=== PATIENT | male | born 1995 | race African-American/Black ===

== ENCOUNTER 2016-08-24 07:03 | Emergency (ER) | payer MEDICAID, OTHER ==
[~2016-08-24] VITALS: Ht 170.2 cm; Wt 82.0 kg
[2016-08-24 09:44] VITALS: BP 160/95
== END 2016-08-24 11:24 | disposition left against medical advice (07) ==
LOC: ER 07:04
DX: F41.9 Anxiety disorder, unspecified (principal); J45.909 Unspecified asthma, uncomplicated; F12.10 Cannabis abuse, uncomplicated
CPT/HCPCS: 99283

== ENCOUNTER 2016-10-24 13:13 | Emergency (ER) | payer OTHER ==
[~2016-10-24] VITALS: Ht 175.3 cm; Wt 80.0 kg
[2016-10-24] MEDS ORDERED: LORAZEPAM 2MG/ML CPJ IM STA (13:34)
[2016-10-24] MEDS ORDERED: OLANZAPINE 10 MG/VIAL IM STA (13:34)
[2016-10-24 14:09] LABS: BASOPHILS % 0.3 % (0.0-2.0); EOSINOPHILS % 0.4 % (0.0-5.0); HEMATOCRIT. 44.6 % (42.0-52.0); HEMOGLOBIN. 14.8 g/dL (14.0-18.0); LYMPHOCYTES % 11.3 % (20.0-50.0); MEAN CORPUSCULAR HEMOGLOBIN 28.5 pg (28.0-32.0); MONOCYTES % 10.1 % (2.0-8.0); NEUTROPHILS % 77.9 % (40.0-76.0); PLATELET 316 x1000/uL (130-400); RED BLOOD CELL COUNT 5.19 mill/uL (4.7-6.1)
[2016-10-24 14:15] LABS: CARBON DIOXIDE 20 mEq/L (21-32); CHLORIDE 102 mEq/L (98-107); ETHANOL BLOOD < 10 mg/dL
[2016-10-24 14:54] LABS: *AMPHETAMINES SCREEN URINE PRESUMTIVE POSITIVE (NEGATIVE); *BARBITURATES SCREEN URINE NEGATIVE (NEGATIVE); *BENZODIAZEPINES SCREEN URINE NEGATIVE (NEGATIVE); *COCAINE SCREEN URINE PRESUMTIVE POSITIVE (NEGATIVE); CANNABINOID URINE SCREEN NEGATIVE (NEGATIVE); METHADONE URINE SCREEN NEGATIVE (NEGATIVE); OPIATES URINE SCREEN NEGATIVE (NEGATIVE); PHENCYCLIDINE URINE SCREEN NEGATIVE (NEGATIVE)
[2016-10-24 22:49] VITALS: BP 121/77
== END 2016-10-25 00:22 | disposition home or self-care (01) ==
LOC: ER 13:37
DX: F19.10 Other psychoactive substance abuse, uncomplicated (principal); J45.909 Unspecified asthma, uncomplicated; F31.9 Bipolar disorder, unspecified; F12.10 Cannabis abuse, uncomplicated
CPT/HCPCS: 36415; 80048; 80305; 85025; 96372; 99284; G0482; J2060; J3490; Z7610

== ENCOUNTER 2016-10-25 01:11 | Emergency (ER) | payer OTHER ==
[~2016-10-25] VITALS: Ht 170.2 cm; Wt 84.0 kg
[2016-10-25 06:33] VITALS: BP 133/82
== END 2016-10-25 08:12 | disposition left against medical advice (07) ==
LOC: ER 01:11
DX: Z59.0 Homelessness (principal); J45.909 Unspecified asthma, uncomplicated; F41.9 Anxiety disorder, unspecified; F20.9 Schizophrenia, unspecified; F17.200 Nicotine dependence, unspecified, uncomplicated
CPT/HCPCS: 99283

== ENCOUNTER 2017-01-16 03:10 | Emergency (ER) | payer OTHER ==
[~2017-01-16] VITALS: Ht 175.3 cm; Wt 91.0 kg
[2017-01-16] MEDS ORDERED: IPRATROPIUM BROMIDE (0.02%) 0.5MG/2.5ML NEB HHN STA (06:36)
[2017-01-16] MEDS ORDERED: ALBUTEROL (0.083%) 2.5MG/3ML NEB HHN STA (06:36)
[2017-01-16] MEDS ORDERED: METHYLPREDNISOLONE SOD SUCC 125 MG/2 ML VIAL IV STA (06:36)
[2017-01-16 08:00] VITALS: BP 143/75
[2017-01-16] MEDS ORDERED: IPRATROPIUM/ALBUTEROL 0.5-3(2.5)MG/3ML NEB ONE (08:01)
== END 2017-01-16 08:28 | disposition home or self-care (01) ==
LOC: ER 03:10
DX: J45.901 Unspecified asthma with (acute) exacerbation (principal); F17.200 Nicotine dependence, unspecified, uncomplicated
CPT/HCPCS: 94640; 99283; J7611; J7620

== ENCOUNTER 2017-02-01 17:34 | Emergency (ER) | payer OTHER ==
[~2017-02-01] VITALS: Ht 172.7 cm; Wt 85.0 kg
[2017-02-01] MEDS ORDERED: IPRATROPIUM/ALBUTEROL 0.5-3(2.5)MG/3ML NEB HHN ONE (19:00)
[2017-02-01 20:46] LABS: BASOPHILS % 0.6 % (0.0-2.0); EOSINOPHILS % 3.2 % (0.0-5.0); HEMATOCRIT. 45.2 % (42.0-52.0); HEMOGLOBIN. 15.2 g/dL (14.0-18.0); LYMPHOCYTES % 42.1 % (20.0-50.0); MEAN CORPUSCULAR HEMOGLOBIN 29.3 pg (28.0-32.0); MEAN CORPUSCULAR VOLUME 87.1 fL (80.0-94.0); MEAN PLATELET VOLUME 6.6 fl (7.4-10.4); MONOCYTES % 7.2 % (2.0-8.0); NEUTROPHILS % 46.9 % (40.0-76.0); PLATELET 298 x1000/uL (130-400); RED BLOOD CELL COUNT 5.19 mill/uL (4.7-6.1); RED CELL DISTRIBUTION WIDTH 13.8 % (11.6-14.6)
[2017-02-01 20:52] LABS: CHLORIDE 105 mEq/L (98-107)
[2017-02-01 21:03] LABS: CARBON DIOXIDE 29 mEq/L (21-32)
[2017-02-01 21:28] LABS: CLARITY URINE TURBID (CLEAR); COLOR URINE YELLOW (YELLOW); GLUCOSE URINE NEGATIVE (NEGATIVE); KETONES URINE NEGATIVE (NEGATIVE); LEUKOCYTE ESTERASE URINE NEGATIVE (NEGATIVE); NITRITE URINE NEGATIVE (NEGATIVE); OCCULT BLOOD URINE NEGATIVE (NEGATIVE); PROTEIN URINE NEGATIVE (NEGATIVE); SPECIFIC GRAVITY URINE 1.027 (1.005-1.030)
[2017-02-01 21:40] LABS: *AMPHETAMINES SCREEN URINE PRESUMTIVE POSITIVE (NEGATIVE); *BARBITURATES SCREEN URINE NEGATIVE (NEGATIVE); *BENZODIAZEPINES SCREEN URINE NEGATIVE (NEGATIVE); *COCAINE SCREEN URINE NEGATIVE (NEGATIVE); CANNABINOID URINE SCREEN NEGATIVE (NEGATIVE); METHADONE URINE SCREEN NEGATIVE (NEGATIVE); OPIATES URINE SCREEN NEGATIVE (NEGATIVE); PHENCYCLIDINE URINE SCREEN NEGATIVE (NEGATIVE)
[2017-02-01 21:41] VITALS: BP 121/74
== END 2017-02-01 21:42 | disposition home or self-care (01) ==
LOC: ER 17:46
DX: F41.9 Anxiety disorder, unspecified (principal); J45.909 Unspecified asthma, uncomplicated
CPT/HCPCS: 36415; 71010; 80053; 80305; 81001; 85025; 93005; 94640; 99285; J7620

== ENCOUNTER 2017-02-01 22:51 | Emergency (ER) | payer OTHER ==
[~2017-02-01] VITALS: Ht 170.2 cm; Wt 91.0 kg
[2017-02-01 22:53] VITALS: BP 170/100
== END 2017-02-01 23:55 | disposition home or self-care (01) ==
LOC: ER 22:51
DX: Z76.0 Encounter for issue of repeat prescription (principal); T43.621A Poisoning by amphetamines, accidental (unintentional), initial encounter; J45.909 Unspecified asthma, uncomplicated; R56.9 Unspecified convulsions
CPT/HCPCS: 99283

== ENCOUNTER 2017-02-02 01:16 | Emergency (ER) | payer OTHER ==
[~2017-02-02] VITALS: Ht 170.2 cm; Wt 91.0 kg
[2017-02-02 08:09] VITALS: BP 151/109
[2017-02-02] MEDS ORDERED: LEVETIRACETAM 1,000 MG in SODIUM CHLORIDE 0.9% 100 ML IV SCH (09:00)
[2017-02-02] MEDS ORDERED: LEVETIRACETAM 1000MG PREMIX 100 ML IV SCH (09:12)
== END 2017-02-02 10:20 | disposition home or self-care (01) ==
LOC: ER 01:24
DX: G40.909 Epilepsy, unspecified, not intractable, without status epilepticus (principal); J45.909 Unspecified asthma, uncomplicated; F17.210 Nicotine dependence, cigarettes, uncomplicated; Z91.14 Patient's other noncompliance with medication regimen
CPT/HCPCS: 93005; 96365; 99284; J1953; Z7610

== ENCOUNTER 2017-05-06 08:58 | Emergency (ER) | payer OTHER ==
[~2017-05-06] VITALS: Ht 175.3 cm; Wt 80.0 kg
[2017-05-06] MEDS ORDERED: ALBUTEROL (0.083%) 2.5MG/3ML NEB HHN STA (09:12)
[2017-05-06] MEDS ORDERED: PREDNISONE 20MG TABLET PO STA (09:12)
[2017-05-06] MEDS ORDERED: IPRATROPIUM BROMIDE (0.02%) 0.5MG/2.5ML NEB HHN STA (09:12)
[2017-05-06 11:31] VITALS: BP 158/79
== END 2017-05-06 11:40 | disposition home or self-care (01) ==
LOC: ER 09:20
DX: J45.901 Unspecified asthma with (acute) exacerbation (principal); F17.200 Nicotine dependence, unspecified, uncomplicated; F15.10 Other stimulant abuse, uncomplicated
CPT/HCPCS: 94640; 99283; J7512; J7611; Z7610

== ENCOUNTER 2017-05-06 14:12 | Emergency (ER) | payer OTHER ==
[~2017-05-06] VITALS: Ht 170.2 cm; Wt 73.0 kg
[2017-05-06 14:35] VITALS: BP 115/90
== END 2017-05-06 20:35 | disposition left against medical advice (07) ==
LOC: ER 15:25
DX: R06.02 Shortness of breath (principal); Z53.21 Procedure and treatment not carried out due to patient leaving prior to being seen by health care provider

== ENCOUNTER 2017-05-20 01:34 | Emergency (ER) | payer OTHER ==
[~2017-05-20] VITALS: Ht 170.2 cm; Wt 81.0 kg
[2017-05-20 07:13] LABS: CLARITY URINE CLEAR (CLEAR); COLOR URINE YELLOW (YELLOW); KETONES URINE TRACE (NEGATIVE); LEUKOCYTE ESTERASE URINE NEGATIVE (NEGATIVE); NITRITE URINE NEGATIVE (NEGATIVE); OCCULT BLOOD URINE NEGATIVE (NEGATIVE); PH URINE 5.5 (4.5-8.0); PROTEIN URINE NEGATIVE (NEGATIVE); SPECIFIC GRAVITY URINE 1.023 (1.005-1.030); UROBILINOGEN URINE 0.2 E.U./dL (0.2-1.0)
[2017-05-20 07:20] LABS: BASOPHILS % 0.8 % (0.0-2.0); EOSINOPHILS % 4.3 % (0.0-5.0); HEMATOCRIT. 40.6 % (42.0-52.0); HEMOGLOBIN. 13.3 g/dL (14.0-18.0); LYMPHOCYTES % 46.7 % (20.0-50.0); MEAN CORPUSCULAR HEMOGLOBIN 28.9 pg (28.0-32.0); MEAN PLATELET VOLUME 6.6 fl (7.4-10.4); NEUTROPHILS % 37.2 % (40.0-76.0); PLATELET 319 x1000/uL (130-400); RED BLOOD CELL COUNT 4.61 mill/uL (4.7-6.1); RED CELL DISTRIBUTION WIDTH 13.9 % (11.6-14.6)
[2017-05-20 07:30] LABS: CHLORIDE 109 mEq/L (98-107); ETHANOL BLOOD < 10 mg/dL
[2017-05-20 07:46] LABS: *BARBITURATES SCREEN URINE NEGATIVE (NEGATIVE); *COCAINE SCREEN URINE NEGATIVE (NEGATIVE); CANNABINOID URINE SCREEN NEGATIVE (NEGATIVE); METHADONE URINE SCREEN NEGATIVE (NEGATIVE); OPIATES URINE SCREEN NEGATIVE (NEGATIVE)
[2017-05-20 07:50] LABS: *AMPHETAMINES SCREEN URINE PRESUMTIVE POSITIVE (NEGATIVE); *BENZODIAZEPINES SCREEN URINE NEGATIVE (NEGATIVE); PHENCYCLIDINE URINE SCREEN PRESUMTIVE POSITIVE (NEGATIVE)
[2017-05-20 13:32] VITALS: BP 118/72
== END 2017-05-20 13:54 | disposition home or self-care (01) ==
LOC: ER 01:34
DX: F31.9 Bipolar disorder, unspecified (principal); F20.9 Schizophrenia, unspecified; F15.10 Other stimulant abuse, uncomplicated; J45.909 Unspecified asthma, uncomplicated; F17.200 Nicotine dependence, unspecified, uncomplicated
CPT/HCPCS: 36415; 80053; 80305; 80307; 80329; 81003; 85025; 93005; 99285; G0482; Z7610

== ENCOUNTER 2017-06-05 02:04 | Emergency (ER) | payer OTHER ==
[~2017-06-05] VITALS: Ht 175.3 cm; Wt 86.0 kg
[2017-06-05 02:45] LABS: BASOPHILS % 0.8 % (0.0-2.0); EOSINOPHILS % 4.4 % (0.0-5.0); HEMATOCRIT. 43.4 % (42.0-52.0); HEMOGLOBIN. 14.5 g/dL (14.0-18.0); LYMPHOCYTES % 50.6 % (20.0-50.0); MEAN CORPUSCULAR HEMOGLOBIN 29.1 pg (28.0-32.0); MEAN CORPUSCULAR VOLUME 87.1 fL (80.0-94.0); MEAN PLATELET VOLUME 6.6 fl (7.4-10.4); MONOCYTES % 8.8 % (2.0-8.0); NEUTROPHILS % 35.4 % (40.0-76.0); PLATELET 326 x1000/uL (130-400); RED BLOOD CELL COUNT 4.98 mill/uL (4.7-6.1); RED CELL DISTRIBUTION WIDTH 13.8 % (11.6-14.6)
[2017-06-05 02:52] LABS: CHLORIDE 108 mEq/L (98-107)
[2017-06-05 02:57] LABS: ETHANOL BLOOD 219 mg/dL
[2017-06-05 05:01] LABS: *AMPHETAMINES SCREEN URINE NEGATIVE (NEGATIVE); *BARBITURATES SCREEN URINE NEGATIVE (NEGATIVE); *BENZODIAZEPINES SCREEN URINE NEGATIVE (NEGATIVE); *COCAINE SCREEN URINE PRESUMTIVE POSITIVE (NEGATIVE); CANNABINOID URINE SCREEN NEGATIVE (NEGATIVE); METHADONE URINE SCREEN NEGATIVE (NEGATIVE); OPIATES URINE SCREEN NEGATIVE (NEGATIVE); PHENCYCLIDINE URINE SCREEN NEGATIVE (NEGATIVE)
[2017-06-05 08:26] VITALS: BP 128/72
== END 2017-06-05 08:30 | disposition home or self-care (01) ==
LOC: ER 02:04
DX: J45.901 Unspecified asthma with (acute) exacerbation (principal); F31.9 Bipolar disorder, unspecified; F20.9 Schizophrenia, unspecified; F15.10 Other stimulant abuse, uncomplicated
CPT/HCPCS: 36415; 80048; 80305; 80307; 80329; 85025; 99284; G0482; Z7610

== ENCOUNTER 2017-06-09 01:06 | Emergency (ER) | payer OTHER ==
[~2017-06-09] VITALS: Ht 170.2 cm; Wt 87.0 kg
[2017-06-09 07:02] LABS: CLARITY URINE CLEAR (CLEAR); COLOR URINE YELLOW (YELLOW); KETONES URINE NEGATIVE (NEGATIVE); LEUKOCYTE ESTERASE URINE NEGATIVE (NEGATIVE); NITRITE URINE NEGATIVE (NEGATIVE); OCCULT BLOOD URINE NEGATIVE (NEGATIVE); PH URINE 5.5 (4.5-8.0); PROTEIN URINE NEGATIVE (NEGATIVE); SPECIFIC GRAVITY URINE 1.024 (1.005-1.030); UROBILINOGEN URINE 0.2 E.U./dL (0.2-1.0)
[2017-06-09 07:04] LABS: EOSINOPHILS % 4.1 % (0.0-5.0); HEMATOCRIT. 41.8 % (42.0-52.0); HEMOGLOBIN. 13.9 g/dL (14.0-18.0); LYMPHOCYTES % 41.1 % (20.0-50.0); MEAN CORPUSCULAR VOLUME 87.1 fL (80.0-94.0); MEAN PLATELET VOLUME 6.7 fl (7.4-10.4); MONOCYTES % 9.6 % (2.0-8.0); NEUTROPHILS % 44.2 % (40.0-76.0); PLATELET 299 x1000/uL (130-400); RED BLOOD CELL COUNT 4.81 mill/uL (4.7-6.1); RED CELL DISTRIBUTION WIDTH 13.6 % (11.6-14.6)
[2017-06-09 07:14] LABS: CHLORIDE 104 mEq/L (98-107)
[2017-06-09 07:18] LABS: ETHANOL BLOOD < 10 mg/dL
[2017-06-09 07:35] LABS: *AMPHETAMINES SCREEN URINE NEGATIVE (NEGATIVE); *BARBITURATES SCREEN URINE NEGATIVE (NEGATIVE); *BENZODIAZEPINES SCREEN URINE NEGATIVE (NEGATIVE); *COCAINE SCREEN URINE NEGATIVE (NEGATIVE); CANNABINOID URINE SCREEN NEGATIVE (NEGATIVE); METHADONE URINE SCREEN NEGATIVE (NEGATIVE); OPIATES URINE SCREEN NEGATIVE (NEGATIVE); PHENCYCLIDINE URINE SCREEN NEGATIVE (NEGATIVE)
[2017-06-09 09:25] VITALS: BP 131/76
== END 2017-06-09 10:11 | disposition home or self-care (01) ==
LOC: ER 01:06
DX: Z76.0 Encounter for issue of repeat prescription (principal); R44.0 Auditory hallucinations; F31.9 Bipolar disorder, unspecified; F17.210 Nicotine dependence, cigarettes, uncomplicated; R03.0 Elevated blood-pressure reading, without diagnosis of hypertension
CPT/HCPCS: 36415; 80053; 80305; 80307; 80329; 81003; 85025; 99284; G0482

== ENCOUNTER 2017-06-11 02:10 | Emergency (ER) | payer OTHER ==
[~2017-06-11] VITALS: Ht 182.9 cm; Wt 86.0 kg
[2017-06-11] MEDS ORDERED: OLANZAPINE 5MG TABLET ODT PO ONE (07:15)
[2017-06-11] MEDS ORDERED: ALBUTEROL (0.083%) 2.5MG/3ML NEB HHN STA (07:15)
[2017-06-11 08:15] VITALS: BP 134/75
== END 2017-06-11 09:01 | disposition home or self-care (01) ==
LOC: ER 02:20
DX: F20.9 Schizophrenia, unspecified (principal); J45.901 Unspecified asthma with (acute) exacerbation; J20.9 Acute bronchitis, unspecified; F31.9 Bipolar disorder, unspecified; F17.200 Nicotine dependence, unspecified, uncomplicated; Z91.19 Patient's noncompliance with other medical treatment and regimen
CPT/HCPCS: 71045; 94640; 99283; J7030; J7611; Z7610

== ENCOUNTER 2017-07-17 23:28 | Emergency (ER) | payer OTHER ==
[~2017-07-17] VITALS: Ht 170.2 cm; Wt 91.0 kg
[2017-07-17 23:35] VITALS: BP 113/75
== END 2017-07-18 | disposition left against medical advice (07) ==
LOC: ER 23:28
DX: F41.0 Panic disorder [episodic paroxysmal anxiety] (principal); Z53.21 Procedure and treatment not carried out due to patient leaving prior to being seen by health care provider

== ENCOUNTER 2019-05-18 15:09 | Emergency (ER) | payer MEDICAID, OTHER ==
[~2019-05-18] VITALS: Ht 172.7 cm; Wt 91.0 kg
[2019-05-18] MEDS ORDERED: PREDNISONE 20MG TABLET PO STA (17:40)
[2019-05-18] MEDS ORDERED: IPRATROPIUM/ALBUTEROL 0.5-3(2.5)MG/3ML NEB HHN ONE (17:45)
[2019-05-18 19:34] VITALS: BP 124/74
== END 2019-05-18 19:35 | disposition home or self-care (01) ==
LOC: ER 15:09
DX: J45.901 Unspecified asthma with (acute) exacerbation (principal); F15.10 Other stimulant abuse, uncomplicated; Z86.59 Personal history of other mental and behavioral disorders
CPT/HCPCS: 94640; 99283; J7512; J7610; Z7610

== ENCOUNTER 2021-03-03 05:13 | Inpatient (IN) | payer MEDICAID, OTHER ==
[~2021-03-03] VITALS: Ht 170.2 cm; Wt 108.4 kg
[2021-03-03] MEDS ORDERED: METHYLPREDNISOLONE SOD SUCC 125 MG/2 ML VIAL IV STA (05:32)
[2021-03-03] MEDS ORDERED: IPRATROPIUM BROMIDE (0.02%) 0.5MG/2.5ML NEB HHN STA (05:32)
[2021-03-03] MEDS: ALBUTEROL (0.083%) 2.5MG/3ML NEB HHN SCH ×3 (05:47→06:52)
[2021-03-03] MEDS ORDERED: ALBUTEROL (0.083%) 2.5MG/3ML NEB HHN STA (07:50)
[2021-03-03 08:30] LABS: BASOPHILS % 0.7 % (0.0-2.0); EOSINOPHILS % 1.2 % (0.0-5.0); HEMATOCRIT. 41.4 % (42.0-52.0); HEMOGLOBIN. 14.1 g/dL (14.0-18.0); LYMPHOCYTES % 13.3 % (20.0-50.0); MEAN CORPUSCULAR HEMOGLOBIN 29.3 pg (28.0-32.0); MEAN CORPUSCULAR VOLUME 86.4 fL (80.0-94.0); MEAN PLATELET VOLUME 6.5 fl (7.4-10.4); MONOCYTES % 2.9 % (2.0-8.0); NEUTROPHILS % 81.9 % (40.0-76.0); PLATELET 262 x1000/uL (130-400); RED BLOOD CELL COUNT 4.79 mill/uL (4.7-6.1); RED CELL DISTRIBUTION WIDTH 15.3 % (11.6-14.6)
[2021-03-03 08:37] LABS: CHLORIDE 105 mEq/L (98-107)
[2021-03-03] MEDS ORDERED: ACETAMINOPHEN 325MG TABLET PO PRN (14:15)
[2021-03-03] MEDS ORDERED: ONDANSETRON HCL 4MG/2ML INJ IV PRN (14:15)
[2021-03-03] MEDS: IPRATROPIUM/ALBUTEROL 0.5-3(2.5)MG/3ML NEB HHN SCH (17:00)
[2021-03-03] MEDS: METHYLPREDNISOLONE SOD SUCC 40 MG/ML VIAL IV SCH (18:01)
[2021-03-03] MEDS ORDERED: FAMOTIDINE 20MG TABLET PO SCH (21:00)
[2021-03-03 22:30] VITALS: BP 172/60
[2021-03-03 22:33] VITALS: BP 172/60
[2021-03-04] MEDS ORDERED: ZOLPIDEM TARTRATE 5MG TABLET PO NR
[2021-03-04] MEDS: METHYLPREDNISOLONE SOD SUCC 40 MG/ML VIAL IV SCH ×3 (00:24→09:08)
[2021-03-04] MEDS: IPRATROPIUM/ALBUTEROL 0.5-3(2.5)MG/3ML NEB HHN SCH ×4 (00:51→13:07)
[2021-03-04] MEDS ORDERED: METF-873 MT (02:22)
[2021-03-04] MEDS ORDERED: FLUT1BLS8 IH (02:22)
[2021-03-04] MEDS ORDERED: OLAN2.5T29 MT (02:22)
[2021-03-04] MEDS ORDERED: ALBU6.7H9 INH ×2 (02:22→12:21)
[2021-03-04] MEDS ORDERED: ZOLPIDEM TARTRATE 5MG TABLET PO PRN (02:30)
[2021-03-04] MEDS ORDERED: ACETAMINOPHEN 325MG TABLET PO PRN (02:30)
[2021-03-04] MEDS ORDERED: ONDANSETRON HCL 4MG/2ML INJ IV PRN (02:30)
[2021-03-04 04:00] VITALS: BP 139/83
[2021-03-04 08:00] VITALS: BP 144/89
[2021-03-04] MEDS ORDERED: FAMOTIDINE 20MG TABLET PO SCH (09:00)
[2021-03-04 12:00] VITALS: BP 155/86
[2021-03-04] MEDS ORDERED: FLUT1DIS3 INH (12:21)
[2021-03-04] MEDS ORDERED: P20 MT (12:21)
[2021-03-04] MEDS ORDERED: AMLO10TA80 MT (12:54)
[2021-03-04 13:14] VITALS: BP 155/86
[2021-03-04 15:05] LABS: *AMPHETAMINES SCREEN URINE NEGATIVE (NEGATIVE); *BARBITURATES SCREEN URINE NEGATIVE (NEGATIVE); *BENZODIAZEPINES SCREEN URINE NEGATIVE (NEGATIVE); *COCAINE SCREEN URINE NEGATIVE (NEGATIVE); METHADONE URINE SCREEN NEGATIVE (NEGATIVE); OPIATES URINE SCREEN NEGATIVE (NEGATIVE); PHENCYCLIDINE URINE SCREEN NEGATIVE (NEGATIVE)
[2021-03-04 15:06] LABS: CANNABINOID URINE SCREEN NEGATIVE (NEGATIVE)
== END 2021-03-04 15:35 | disposition home or self-care (01) | DRG 133 ==
LOC: ER 05:52 → MICUSO 12:34 → 8WST 15:26 → MICUSO 15:39 → 7EST 21:46
PROVIDERS: ADMIT Internal Medicine; ATTEND Internal Medicine
DX: J96.01 Acute respiratory failure with hypoxia (principal); J45.901 Unspecified asthma with (acute) exacerbation; E66.9 Obesity, unspecified; R74.01 Elevation of levels of liver transaminase levels; F17.210 Nicotine dependence, cigarettes, uncomplicated; Z20.822 Contact with and (suspected) exposure to COVID-19; F20.9 Schizophrenia, unspecified; Z71.6 Tobacco abuse counseling; F31.9 Bipolar disorder, unspecified; Z71.3 Dietary counseling and surveillance; Z68.37 Body mass index [BMI] 37.0-37.9, adult
CPT/HCPCS: 36415; 71045; 80053; 80305; 85025; 87426; 94640; 99285; J2920; J2930

== ENCOUNTER 2021-04-18 10:40 | Emergency (ER) | payer MEDICAID ==
[~2021-04-18] VITALS: Ht 172.7 cm; Wt 73.0 kg
[~2021-04-18 10:40] MED LIST: ALBU6.7H9 INH; AMLO10TA80 MT; FLUT1BLS8 IH; FLUT1DIS3 INH; METF-873 MT; OLAN2.5T29 MT; P20 MT
[2021-04-18] MEDS ORDERED: IPRATROPIUM/ALBUTEROL 0.5-3(2.5)MG/3ML NEB HHN ONE (11:00)
[2021-04-18] MEDS ORDERED: PREDNISONE 20MG TABLET PO ONE (11:00)
[2021-04-18] MEDS ORDERED: ALBU6.7H9 INH (13:46)
[2021-04-18] MEDS ORDERED: P20 MT (13:46)
[2021-04-18 14:00] VITALS: BP 134/87
== END 2021-04-18 14:06 | disposition home or self-care (01) ==
LOC: ER 10:40
DX: J45.901 Unspecified asthma with (acute) exacerbation (principal); F12.10 Cannabis abuse, uncomplicated; F17.210 Nicotine dependence, cigarettes, uncomplicated; Z71.6 Tobacco abuse counseling
CPT/HCPCS: 71045; 94640; 99283; 99406; J7512; Z7610

== ENCOUNTER 2021-05-09 22:07 | Emergency (ER) | payer MEDICAID ==
[~2021-05-09] VITALS: Ht 170.2 cm; Wt 79.0 kg
[2021-05-09 23:14] LABS: HEMATOCRIT. 43.2 % (42.0-52.0); HEMOGLOBIN. 14.7 g/dL (14.0-18.0); MEAN CORPUSCULAR HEMOGLOBIN 28.6 pg (28.0-32.0); MEAN CORPUSCULAR VOLUME 84.3 fL (80.0-94.0); RED BLOOD CELL COUNT 5.13 mill/uL (4.7-6.1); RED CELL DISTRIBUTION WIDTH 14.6 % (11.6-14.6)
[2021-05-09 23:28] LABS: CHLORIDE 103 mEq/L (98-107); MEAN PLATELET VOLUME 7.1 fl (7.4-10.4); PLATELET 324 x1000/uL (130-400)
[2021-05-09 23:30] LABS: PLATELET ESTIMATE NORMAL
[2021-05-09] MEDS ORDERED: POTASSIUM CHLORIDE 20MEQ TABLET SR PO ONE (23:45)
[2021-05-10 03:16] VITALS: BP 135/90
== END 2021-05-10 03:17 | disposition home or self-care (01) ==
LOC: ER 22:07
DX: R42 Dizziness and giddiness (principal); E87.6 Hypokalemia; F17.200 Nicotine dependence, unspecified, uncomplicated; F14.10 Cocaine abuse, uncomplicated; F12.10 Cannabis abuse, uncomplicated; F15.10 Other stimulant abuse, uncomplicated; E11.9 Type 2 diabetes mellitus without complications; J45.909 Unspecified asthma, uncomplicated; Z79.899 Other long term (current) drug therapy; Z98.890 Other specified postprocedural states; Z86.59 Personal history of other mental and behavioral disorders
CPT/HCPCS: 36415; 80053; 85025; 93005; 99284

== ENCOUNTER 2021-05-24 21:11 | Emergency (ER) | payer MEDICAID ==
[~2021-05-24] VITALS: Ht 162.6 cm; Wt 78.0 kg
[2021-05-24 23:18] LABS: BASOPHILS % 0.7 % (0.0-2.0); EOSINOPHILS % 4.5 % (0.0-5.0); HEMOGLOBIN. 14.4 g/dL (14.0-18.0); LYMPHOCYTES % 32.9 % (20.0-50.0); MEAN CORPUSCULAR HEMOGLOBIN 28.2 pg (28.0-32.0); MEAN CORPUSCULAR VOLUME 84.1 fL (80.0-94.0); MEAN PLATELET VOLUME 6.7 fl (7.4-10.4); MONOCYTES % 11.8 % (2.0-8.0); NEUTROPHILS % 50.1 % (40.0-76.0); PLATELET 377 x1000/uL (130-400); RED BLOOD CELL COUNT 5.11 mill/uL (4.7-6.1); RED CELL DISTRIBUTION WIDTH 14.3 % (11.6-14.6)
[2021-05-24 23:22] LABS: CHLORIDE 102 mEq/L (98-107)
[2021-05-24 23:27] LABS: ETHANOL BLOOD < 10 mg/dL
[2021-05-25 00:48] LABS: *AMPHETAMINES SCREEN URINE PRESUMTIVE POSITIVE (NEGATIVE); *BARBITURATES SCREEN URINE NEGATIVE (NEGATIVE); *BENZODIAZEPINES SCREEN URINE NEGATIVE (NEGATIVE); *COCAINE SCREEN URINE NEGATIVE (NEGATIVE); CANNABINOID URINE SCREEN PRESUMTIVE POSITIVE (NEGATIVE); METHADONE URINE SCREEN NEGATIVE (NEGATIVE); OPIATES URINE SCREEN NEGATIVE (NEGATIVE); PHENCYCLIDINE URINE SCREEN NEGATIVE (NEGATIVE)
[2021-05-25 00:59] LABS: CLARITY URINE CLOUDY (CLEAR); COLOR URINE DARK YELLOW (YELLOW); KETONES URINE TRACE (NEGATIVE); LEUKOCYTE ESTERASE URINE 1+ (NEGATIVE); NITRITE URINE NEGATIVE (NEGATIVE); OCCULT BLOOD URINE NEGATIVE (NEGATIVE); PH URINE 5.5 (4.5-8.0); PROTEIN URINE 1+ (NEGATIVE); SPECIFIC GRAVITY URINE 1.031 (1.005-1.030)
[2021-05-25 02:30] VITALS: BP 159/85
== END 2021-05-25 02:30 | disposition home or self-care (01) ==
LOC: ER 21:11
DX: F15.988 Other stimulant use, unspecified with other stimulant-induced disorder (principal); R55 Syncope and collapse; I10 Essential (primary) hypertension; R00.0 Tachycardia, unspecified; E87.6 Hypokalemia; M25.551 Pain in right hip; F14.90 Cocaine use, unspecified, uncomplicated; F16.90 Hallucinogen use, unspecified, uncomplicated; F12.90 Cannabis use, unspecified, uncomplicated; Z71.51 Drug abuse counseling and surveillance of drug abuser; Z71.89 Other specified counseling
CPT/HCPCS: 36415; 80053; 80305; 80320; 81003; 85025; 93005; 99284; G0480

== ENCOUNTER 2022-10-02 10:28 | Emergency (ER) | payer MEDICAID ==
[~2022-10-02] VITALS: Ht 170.2 cm; Wt 83.0 kg
[~2022-10-02 10:28] MED LIST changes: +ALBU6.7H3 INH; -ALBU6.7H9 INH
[2022-10-02 10:51] VITALS: BP 133/76; TEMP 97.8
[2022-10-02] MEDS ORDERED: PREDNISONE 20MG TABLET PO STA (11:03)
[2022-10-02] MEDS ORDERED: ALBUTEROL (0.083%) 2.5MG/3ML NEB HHN STA (11:03)
[2022-10-02 14:15] VITALS: PULSE 84; RESP 24; O2SAT 96
[2022-10-02] MEDS: PREDNISONE 20MG TABLET PO NR (14:15)
[2022-10-02] MEDS ORDERED: ALBU6.7H3 INH (14:27)
[2022-10-02] MEDS ORDERED: P50 MT (14:27)
[2022-10-02] MEDS ORDERED: ALBUTEROL (0.083%) 2.5MG/3ML NEB HHN NR (14:30)
== END 2022-10-02 15:35 | disposition home or self-care (01) ==
LOC: ER 10:28
DX: J45.901 Unspecified asthma with (acute) exacerbation (principal); F14.10 Cocaine abuse, uncomplicated; F12.10 Cannabis abuse, uncomplicated; F15.10 Other stimulant abuse, uncomplicated; Z79.899 Other long term (current) drug therapy
CPT/HCPCS: 71045; 94640; 93005; 99283; J7512; Z7610 ×3; 94664

== ENCOUNTER 2023-03-12 00:19 | Emergency (ER) | payer MEDICAID ==
[~2023-03-12] VITALS: Ht 177.8 cm; Wt 95.0 kg
[~2023-03-12 00:19] MED LIST changes: +P50 MT
[2023-03-12] MEDS ORDERED: IPRATROPIUM BROMIDE (0.02%) 0.5MG/2.5ML NEB HHN STA (00:40)
[2023-03-12] MEDS ORDERED: PREDNISONE 20MG TABLET PO STA (00:40)
[2023-03-12] MEDS ORDERED: ALBUTEROL (0.083%) 2.5MG/3ML NEB HHN STA (00:40)
[2023-03-12 01:28] VITALS: PULSE 117; RESP 20; O2SAT 98
[2023-03-12] MEDS ORDERED: P20 MT ×3 (02:27→11:34)
[2023-03-12] MEDS ORDERED: ALBU6.7H15 INH ×4 (02:27→14:08)
[2023-03-12] MEDS ORDERED: ALBUTEROL (0.5%) 2.5MG/0.5ML NEB HHN ONE (03:00)
[2023-03-12] MEDS ORDERED: SODIUM CHLORIDE 0.9% 1,000 ML IV ONE (03:00)
[2023-03-12] MEDS ORDERED: ACETAMINOPHEN 325MG TABLET PO ONE (03:00)
[2023-03-12 03:17] VITALS: PULSE 115; RESP 20
[2023-03-12 04:47] LABS: BASOPHILS % 0.5 % (0.0-2.0); EOSINOPHILS % 3.2 % (0.0-5.0); HEMATOCRIT. 39.7 % (42.0-52.0); HEMOGLOBIN. 12.7 g/dL (14.0-18.0); LYMPHOCYTES % 22.4 % (20.0-50.0); MEAN CORPUSCULAR HEMOGLOBIN 27.5 pg (28.0-32.0); MEAN CORPUSCULAR VOLUME 85.9 fL (80.0-94.0); MEAN PLATELET VOLUME 6.4 fl (7.4-10.4); MONOCYTES % 4.3 % (2.0-8.0); NEUTROPHILS % 69.6 % (40.0-76.0); PLATELET 276 x1000/uL (130-400); RED BLOOD CELL COUNT 4.62 mill/uL (4.7-6.1); RED CELL DISTRIBUTION WIDTH 14.1 % (11.6-14.6); WHITE BLOOD COUNT 6.3 x1000/uL (4.5-11.0)
[2023-03-12 04:58] LABS: CALCIUM 8.1 mg/dL (8.7-10.4); CARBON DIOXIDE 30 mEq/L (21-32); CHLORIDE 107 mEq/L (98-107); CREATININE 0.7 mg/dL (0.6-1.3); GLUCOSE 145 mg/dL (70-105); POTASSIUM 3.7 mEq/L (3.5-5.1); SODIUM 142 mEq/L (136-145); UREA NITROGEN BLOOD 10 mg/dL (9-23)
[2023-03-12] MEDS ORDERED: BUDESONIDE 0.5MG/2ML NEB HHN SCH (06:45)
[2023-03-12] MEDS ORDERED: IPRATROPIUM/ALBUTEROL 0.5-3(2.5)MG/3ML NEB HHN PRN (06:45)
[2023-03-12 07:13] LABS: T4 FREE 0.86 ng/dL (0.89-1.76); THYROID STIMULATING HORMONE 3.14 uIU/mL (0.55-4.78)
[2023-03-12] MEDS: IPRATROPIUM/ALBUTEROL 0.5-3(2.5)MG/3ML NEB HHN SCH ×2 (08:20→11:30)
[2023-03-12 08:21] VITALS: PULSE 98; RESP 18
[2023-03-12 08:23] LABS: CLARITY URINE CLOUDY (CLEAR); COLOR URINE YELLOW (YELLOW); GLUCOSE URINE NEGATIVE (NEGATIVE); KETONES URINE NEGATIVE (NEGATIVE); LEUKOCYTE ESTERASE URINE NEGATIVE (NEGATIVE); NITRITE URINE NEGATIVE (NEGATIVE); OCCULT BLOOD URINE NEGATIVE (NEGATIVE); PH URINE 7.5 (4.5-8.0); PROTEIN URINE NEGATIVE (NEGATIVE)
[2023-03-12 09:03] LABS: RBC URINE NONE SEEN /hpf (0-2)
[2023-03-12 09:04] LABS: BACTERIA URINE FEW; SQUAMOUS EPITHELIAL CELL URINE FEW /lpf (RARE/1+); YEAST URINE NONE SEEN
[2023-03-12 11:30] VITALS: PULSE 106; RESP 16; O2SAT 96
[2023-03-12] MEDS ORDERED: ATROV INH ×3 (11:34→14:08)
[2023-03-12 13:51] LABS: *AMPHETAMINES SCREEN URINE PRESUMPTIVE POSITIVE (NEGATIVE); *BARBITURATES SCREEN URINE NEGATIVE (NEGATIVE); *BENZODIAZEPINES SCREEN URINE NEGATIVE (NEGATIVE); *COCAINE SCREEN URINE NEGATIVE (NEGATIVE); ECSTASY MDMA SCREEN URINE NEGATIVE (NEGATIVE); OPIATES URINE SCREEN NEGATIVE (NEGATIVE)
[2023-03-12 13:52] LABS: PHENCYCLIDINE URINE SCREEN NEGATIVE (NEGATIVE)
[2023-03-12] MEDS ORDERED: PRED10TA23 MT (14:00)
[2023-03-12] MEDS ORDERED: PRED10TA PO (14:08)
[2023-03-12 15:28] VITALS: BP 116/72; PULSE 98; RESP 17; TEMP 98.7
== END 2023-03-12 15:30 | disposition home or self-care (01) ==
LOC: ER 00:19 → EDBEDREQTM 04:55 → EDBEDREQ 04:55 → ER 15:30
DX: J45.901 Unspecified asthma with (acute) exacerbation (principal); F14.10 Cocaine abuse, uncomplicated; F12.10 Cannabis abuse, uncomplicated; F15.10 Other stimulant abuse, uncomplicated; Z00.00 Encounter for general adult medical examination without abnormal findings; Z20.822 Contact with and (suspected) exposure to COVID-19; Z79.899 Other long term (current) drug therapy
CPT/HCPCS: 80061; 80305; 80048; 81003; 83036; 84439; 84443; 85025; 36415; 71045; 94640; 96360; 96361; 99285; 87426; Z7610 ×5; J7512; J7626; C9803

== ENCOUNTER 2023-06-06 01:48 | Emergency (ER) | payer MEDICAID ==
[~2023-06-06] VITALS: Ht 177.8 cm; Wt 65.0 kg
[~2023-06-06 01:48] MED LIST changes: +ALBU6.7H15 INH; +ATROV INH; +PRED10TA PO; +PRED10TA23 MT
[2023-06-06 01:55] VITALS: O2SAT 100
[2023-06-06] MEDS ORDERED: IPRATROPIUM BROMIDE (0.02%) 0.5MG/2.5ML NEB HHN STA (05:49)
[2023-06-06] MEDS ORDERED: ALBUTEROL (0.083%) 2.5MG/3ML NEB HHN STA (05:49)
[2023-06-06] MEDS: PREDNISONE 20MG TABLET PO STA (05:49)
[2023-06-06 06:10] VITALS: PULSE 92; RESP 16
[2023-06-06] MEDS ORDERED: ALBU6.7H15 INH (06:52)
[2023-06-06] MEDS ORDERED: P50 PO (06:52)
[2023-06-06 07:45] VITALS: BP 127/79; PULSE 107; RESP 18; TEMP 98.1
== END 2023-06-06 07:47 | disposition home or self-care (01) ==
LOC: ER 01:48
DX: J45.901 Unspecified asthma with (acute) exacerbation (principal); F14.10 Cocaine abuse, uncomplicated; F15.10 Other stimulant abuse, uncomplicated; F12.10 Cannabis abuse, uncomplicated; Z79.899 Other long term (current) drug therapy
CPT/HCPCS: 94640; 99283; J7512; Z7610 ×3